=== PATIENT | male | born 1975 | race Caucasian/White ===

== ENCOUNTER 2017-11-04 08:48 | Emergency (ER) | payer OTHER ==
[~2017-11-04] VITALS: Ht 182.9 cm; Wt 90.7 kg
[~2017-11-04 08:48] MED LIST: AMOX500 PO; Amoxicillin500 MG PO; CEPH500 PO; CETRAXAL1 EACH BOTHEARS; CYCL10 PO; DOXY100 PO; EPIN.3I IM; GLIP10 PO; GLIP2.5ER; GLYB2.5 PO; HYDACE5 PO; METF500 PO; METF500C PO; Metformin HCl1000 MG PO; NAPR500 PO; NEOCOLOTSU OT; Norco 5-325 Ta1 EACH PO; OXYACE5T PO; PRED20 PO; PROM25 PO; Peridex480 ML SS; RXHYDACE PO; RXOXYACE PO; SULTRIDS PO; TOBR.3OPSO OP; Ultram50 MG PO
[2017-11-04] MEDS ORDERED: Omeprazole20 M1 (09:00)
[2017-11-04] MEDS ORDERED: Percocet 5-3251 EACH PO (11:44)
== END 2017-11-04 12:09 | disposition home or self-care (01) ==
LOC: ER 08:48
DX: S70.01XA Contusion of right hip, initial encounter (principal); S20.212A Contusion of left front wall of thorax, initial encounter; S80.11XA Contusion of right lower leg, initial encounter; S00.83XA Contusion of other part of head, initial encounter; F17.200 Nicotine dependence, unspecified, uncomplicated; E11.9 Type 2 diabetes mellitus without complications; Z88.8 Allergy status to other drugs, medicaments and biological substances; Z79.899 Other long term (current) drug therapy; Z79.84 Long term (current) use of oral hypoglycemic drugs; Y04.8XXA Assault by other bodily force, initial encounter
CPT/HCPCS: 70486; 99284